=== PATIENT | male | born 1965 | race Caucasian/White ===

== ENCOUNTER 2021-11-09 14:40 | Observation (INO) ==
--- NOTE | 2021-11-09 15:15 | Emergency Department Note ---
Impression & Plan Retrosternal chest pain ED Provider Note INFORMANT: Patient ED PROVIDER(S): Brandon Leonardo MD CHIEF COMPLAINT: Chest pain PLAN: Disposition: Admitted Condition: Good Outpatient prescription management: none Referral: None MEDICAL DECISION MAKING: Patient presented because of intermittent retrosternal chest pain. He has a cardiac history. Last intervention that was attempted was in 2013. The patient had no obvious ischemia via prehospital ECG. ECG here does show poor R wave pr ogression. The patient did have improvement with nitroglycerin prehospital. Chest x-ray was unremarkable. Blood work performed. Patient's D-dimer was elevated. CT PE study did not reveal any evidence of acute pathology. CBC, chemistry panel and troponin were negative. Given the patient's history and symptoms further management in the hospital be necessary. Consultation was placed with hospital service. Patient was evaluated in the ER admitted for further management. Triage Nursing notes reviewed and agree them. Vital Signs: reviewed and remarkable for no significant abnormalities Differential diagnosis: Cardiac ischemia, aortic dissection, pulmonary embolism, pneumothorax, pneumonia, pericarditis, myocarditis, esophageal rupture, GERD, cholecystitis, pancreatitis, musculoskeletal, as well as other pathologies. Diagnostics interpreted by me: ECG: Twelve-lead ECG reveals a normal sinus rhythm at 64 bpm. There is poor R wave progression anteriorly. No ST elevation or depression. No PACs or PVCs. Normal axis. Cardiac Monitoring: Cardiac monitoring ordered by me: The patient was placed on continuous cardiac monitoring and observed. It revealed a normal sinus rhythm at 66 beats per minute without ectopy or evidence of dysrhythmia. Imaging studies: Chest x-ray. Findings: A chest x-ray was performed and revealed no pneumothorax, effusion, infiltrate, pulmonary edema, free air under the diaphragm, or wide mediastinum. Impression: No acute disease. HPI: The patient is a 56year old male who presents to the Emergency Room with complaints of chest pain. This started last night around 9 PM and is described as intermittent. The patient also notes the following associated symptoms, feeling slightly mildly short of breath. The patient has been given aspirin and nitroglycerin for relieving factors. Current pain is rated as 4/10. Patient has history of CO. Notes coronary disease. Was not amenable to intervention in 2013. Pt denies LOC, headache, fevers, chills, visual changes, neck pain, nausea, vomiting, abdominal pain, back pain, melena, hematochezia, urinary sy mptoms, numbness, weakness, lymphadenopathy, rash, or other complaints. ROS: See above HPI for pertinent positives & negatives. A total of 10 systems reviewed and were otherwise negative. PAST MEDICAL HISTORY:See Below , CAD PAST SURGICAL HISTORY:See Below, FAMILY HISTORY:See Below SOCIAL HISTORY:See Below, incarcerated HOME MEDICATIONS:See Below ALLERGIES:See Below VITALS:See Below PHYSICAL EXAMINATION: GENERAL: Awake, alert, well-appearing, in no distress HENT: Normocephalic, atraumatic. Oropharynx unremarkable. EYES: Mildly pale conjunctiva. Sclera non-icteric. NECK: Inspection normal. Non-tender. Supple. No nuchal rigidity. FROM. No mass es. RESPIRATORY: Clear to auscultation. No wheezes. No rales. Normal respiratory effort. CARDIAC: Normal rate. Normal rhythm. No murmurs. No rubs. Extremities warm and well perfused. Pulses equal. No JVD. GI: Soft, non-distended. No tenderness to palpation. No rebound or guarding. No masses. RECTAL: Deferred. MUSCULOSKELETAL: Atraumatic. Chest examination reveals minimal costal margin tenderness. The back is symmetrical on inspection without obvious abnormality. There is no CVA tenderness to palpation. No joint edema. LOWER EXTREMITIES: Calves are equal size bilaterally and non-tender. No edema. No discoloration. NEURO: Normal sensorium. No sensory or motor deficits noted. SKIN: No rash or jaundice noted. 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 bypass, hx of 90% occlusion Social History Smoking Status: Former smoker Second Hand Exposure: No; Do You Dip or Chew Tobacco: No; Tobacco Cessation Education Requested by Patient: No Hx Alcohol Use: No Hx Substance Use: Yes Last Used Substance Other:: 2000 Preferred Language: Amharic Communication Ability: Effective [employer] Required: No Beliefs That Will Affect Care: None Current Living Situation: Other Current Living Situation Comment: shelter Other Information That Helps Us Care for You: No Feels Safe at Home: Yes Safety Concerns: Feels Safe At This Time Assistive Devices: Oxygen - at Night Assistive Devices Comment: 3L o2 at night while at home, not using while in shelter Allergies Allergies Allergy/AdvReac Type Severity Reaction Status Date / Time onion Allergy Unknown Verified 11/09/21 15:16 Home Meds Home Medications Medication Instructions Recorded Confirmed albuterol sulfate 90 mcg/actuation 2 puff inhalation QID PRN 11/09/21 11/09/21 aerosol inhaler Shortness Of Breath Or Wheezing aspirin 81 mg tablet,delayed 81 mg PO DAILY 11/09/21 11/09/21 release atorvastatin 40 mg tablet 40 mg PO PM 11/09/21 11/09/21 hydroxyzine pamoate 50 mg capsule 50 mg PO BID 11/09/21 11/09/21 metoprolol tartrate 25 mg tablet 12.5 mg PO BID 11/09/21 11/09/21 mirtazapine 30 mg tablet 30 mg PO HS 11/09/21 11/09/21 paroxetine HCl 20 mg tablet (Paxil) 40 mg PO DAILY 11/09/21 11/09/21 Results & Data (ED) Vital Signs Vital Signs - 24 hr 11/09/21 14:33 11/09/21 14:33 11/09/21 15:00 Temperature 37.2 C Temperature Source Oral Pulse Rate 66 Respiratory Rate 21 Respiratory Effort / Characteristics Non-Labored Respiratory Depth Normal Blood Pressure 120/79 Blood Pressure Mean 92 Pulse Oximetry 94 94 94 Oxygen Delivery Method Room Air Room Air Room Air Sepsis Recent Fever Within 48 Hours No Sepsis New/Unexplained Change in Mental Status N/A Sepsis Action Taken by Nursing No Action Required 11/09/21 15:11 Temperature Temperature Source Pulse Rate Respiratory Rate Respiratory Effort / Characteristics Respiratory Depth Blood Pressure Blood Pressure Mean Pulse Oximetry 98 Oxygen Delivery Method Room Air Sepsis Recent Fever Within 48 Hours Sepsis New/Unexplained Change in Mental Status Sepsis Action Taken by Nursing Laboratory Data Result diagrams: 11/10/21 03:45 11/10/21 03:45 Lab Results 11/09/21 11/09/21 11/09/21 Range/Units 15:10 15:10 15:10 WBC 4.48 L (4.8-10.8) K/ul RBC 5.03 (4.63-6.08) M/uL Hgb 14.6 (14.0-18.0) g/dl Hct 43.4 (40.1-51.0) % MCV 86.3 (80.0-100.0) fL MCH 29.0 (25.0-34.0) pg MCHC 33.6 (32.0-36.0) g/dL RDW Std Deviation 40.1 (36.4-46.3) fL RDW Coeff of Emmanuel 13.1 (11.5-14.5) % Plt Count 250 (130-400) K/uL MPV 9.8 (9.4-12.4) fL Immature Gran % (Auto) 0.4 % Neut % (Auto) 55.0 % Lymph % (Auto) 29.2 % Gallia % (Auto) 13.2 % Eos % (Auto) 1.3 % Baso % (Auto) 0.9 % Neut # (Auto) 2.46 (1.4-6.5) K/uL Lymph # (Auto) 1.31 (1.2-3.4) K/uL Gallia # (Auto) 0.59 (0.24-0.82) K/uL Eos # (Auto) 0.06 (0-0.50) K/uL Baso # (Auto) 0.04 (0-0.2) K/uL Immature Gran # (Auto) 0.02 (0.00-0.02) K/uL D-Dimer 1410 H* (0-500) ug/L FEU Sodium 135 L (136-145) mmol/L Potassium 4.6 (3.5-5.1) mmol/L Chloride 106 (98-107) mmol/L Carbon Dioxide 20 L (21-32) mmol/L Anion Gap 9 (3-11) BUN 15 (6-23) mg/dl Creatinine 1.31 (0.6-1.4) mg/dl Est Cr Clr Drug Dosing 83.0 ml/min Est GFR ( Amer) 70.5 ml/min Est GFR (Non-Af Amer) 60.9 ml/min BUN/Creatinine Ratio 11.5 (10-20) Glucose 102 H (70-99(Fasting)) mg/dl Calcium 9.1 (8.5-10.1) mg/dl Total Bilirubin 0.6 (0.2-1.0) mg/dl AST 30 (13-39) U/L ALT 27 (7-52) U/L Alkaline Phosphatase 49 (34-104) U/L Troponin I High Sens 3.7 (0-20) pg/ml Total Protein 7.1 (6.0-8.3) gm/dl Albumin 4.2 (3.4-5.0) gm/dl Globulin 2.9 (2.5-4.0) gm/dl Albumin/Globulin Ratio 1.4 (0.9-2) Lipase 27 (11-82) U/L SARS-CoV-2, RNA, NAAT (NEGATIVE) 11/09/21 Range/Units 15:12 WBC (4.8-10.8) K/ul RBC (4.63-6.08) M/uL Hgb (14.0-18.0) g/dl Hct (40.1-51.0) % MCV (80.0-100.0) fL MCH (25.0-34.0) pg MCHC (32.0-36.0) g/dL RDW Std Deviation (36.4-46.3) fL RDW Coeff of Emmanuel (11.5-14.5) % Plt Count (130-400) K/uL MPV (9.4-12.4) fL Immature Gran % (Auto) % Neut % (Auto) % Lymph % (Auto) % Gallia % (Auto) % Eos % (Auto) % Baso % (Auto) % Neut # (Auto) (1.4-6.5) K/uL Lymph # (Auto) (1.2-3.4) K/uL Gallia # (Auto) (0.24-0.82) K/uL Eos # (Auto) (0-0.50) K/uL Baso # (Auto) (0-0.2) K/uL Immature Gran # (Auto) (0.00-0.02) K/uL D-Dimer (0-500) ug/L FEU Sodium (136-145) mmol/L Potassium (3.5-5.1) mmol/L Chloride (98-107) mmol/L Carbon Dioxide (21-32) mmol/L Anion Gap (3-11) BUN (6-23) mg/dl Creatinine (0.6-1.4) mg/dl Est Cr Clr Drug Dosing ml/min Est GFR ( Amer) ml/min Est GFR (Non-Af Amer) ml/min BUN/Creatinine Ratio (10-20) Glucose (70-99(Fasting)) mg/dl Calcium (8.5-10.1) mg/dl Total Bilirubin (0.2-1.0) mg/dl AST (13-39) U/L ALT (7-52) U/L Alkaline Phosphatase (34-104) U/L Troponin I High Sens (0-20) pg/ml Total Protein (6.0-8.3) gm/dl Albumin (3.4-5.0) gm/dl Globulin (2.5-4.0) gm/dl Albumin/Globulin Ratio (0.9-2) Lipase (11-82) U/L SARS-CoV-2, RNA, NAAT NEGATIVE (NEGATIVE) Administered Medications Aspirin (Aspirin 81 Mg Ectab) 81 mg PO DAILY CANDI Stop: 12/10/21 08:59 Last Admin: 11/10/21 08:04 Dose: 81 mg Documented By: LEONA Atorvastatin Calcium (Atorvastatin 40 Mg Tab) 40 mg PO PM CANDI Stop: 12/09/21 20:59 Last Admin: 11/09/21 21:54 Dose: 40 mg Documented By: ZAHIRA Enoxaparin Sodium (Enoxaparin Inj 40 Mg/0.4 Ml Syr) 40 mg SQ Q12H CANDI Stop: 12/09/21 20:59 Last Admin: 11/10/21 08:04 Dose: 40 mg Documented By: Admin: 11/09/21 21:54 Dose: 40 mg Documented By: ZAHIAR Hydroxyzine HCl (Hydroxyzine Hcl 25 Mg Tab) 50 mg PO BID CANDI Stop: 12/09/21 20:59 Last Admin: 11/10/21 08:04 Dose: 50 mg Documented By: Admin: 11/09/21 21:54 Dose: 50 mg Documented By: ZAHIRA Metoprolol Tartrate (Metoprolol Tartrate 25 Mg Tab) 12.5 mg PO BID CANDI Stop: 12/09/21 20:59 Last Admin: 11/10/21 08:05 Dose: Not Given Documented By: Admin: 11/09/21 21:55 Dose: Not Given Documented By: ZAHIRA Mirtazapine (Mirtazapine Tab 15 Mg Tab) 30 mg PO HS CANDI Stop: 12/09/21 20:59 Last Admin: 11/09/21 21:54 Dose: 30 mg Documented By: ZAHIRA Paroxetine HCl (Paroxetine Hcl 20 Mg Tab) 40 mg PO DAILY CANDI Stop: 12/10/21 08:59 Last Admin: 11/10/21 08:05 Dose: 40 mg Documented By: LEONA Discontinued Medications Atropine Sulfate (Atropine Sulfate 0.1 Mg/Ml 10ml Syr) Confirm Administered Dose 2 mg IV .STK-MED ONE Stop: 11/10/21 11:14 Last Admin: 11/10/21 11:51 Dose: 0.75 mg Documented By: KELLEY Dobutamine HCl (Dobutamine Hcl 12.5 Mg/Ml 20 Ml Vial) Confirm Administered Dose 250 mg IV .STK-MED ONE Stop: 11/10/21 11:14 Last Admin: 11/10/21 11:55 Dose: 1 dose Documented By: KELLEY Ioversol (Optiray 300 500ml) 112 ml IV ONCE ONE Stop: 11/09/21 16:16 Last Admin: 11/09/21 16:16 Dose: 112 ml Documented By: DONNA Metoprolol Tartrate (Metoprolol Tartrate 1 Mg/Ml Vial) Confirm Administered Dose 10 mg IV .STK-MED ONE Stop: 11/10/21 11:14 Last Admin: 11/10/21 11:55 Dose: 10 mg Documented By: KELLEY Imaging Data Radiologist's Impression: Chest X-Ray 11/09/21 15:04 XR chest 1V portable CLINICAL HISTORY: Chest Pain TECHNIQUE: Single frontal radiograph of the chest was obtained. Comparison: None available at the time of this dictation. FINDINGS: No lines and tubes are seen. The cardiomediastinal silhouette is normal. The lungs are clear. No evidence of pleural effusion or pneumothorax. IMPRESSION: No acute chest disease. ACT 112: Negative or not required by law. Electronically signed by: Niraj Ortega M.D. 11/09/2021 3:21 PM Discharge Plan Visit Data Chief Complaint: Chest Pain Stated Complaint: CHEST PAIN ED Provider: Brandon Leonardo Discharge Problem: Retrosternal chest pain Patient Disposition: Admitted As Inpatient Discharge Instructions Interventions: ED Discharge Assessment Last Done: 11/09/21 20:34
--- NOTE | 2021-11-09 15:23 | XRay Report ---
XR chest 1V portable CLINICAL HISTORY: Chest Pain TECHNIQUE: Single frontal radiograph of the chest was obtained. Comparison: None available at the time of this dictation. FINDINGS: No lines and tubes are seen. The cardiomediastinal silhouette is normal. The lungs are clear. No evid ence of pleural effusion or pneumothorax. IMPRESSION: No acute chest disease. ACT 112: Negative or not required by law. Electronically signed by: Niraj Ortega M.D. 11/09/2021 3:21 PM
[2021-11-09 15:27] LABS: Basophils # (auto) 0.04 K/uL (0-0.2); Basophils % (auto) 0.9 %; Eosinophils # (auto) 0.06 K/uL (0-0.50); Eosinophils % (auto) 1.3 %; Hematocrit (blood only) 43.4 % (40.1-51.0); Hemoglobin 14.6 g/dl (14.0-18.0); Immature Granulocytes # (auto) 0.02 K/uL (0.00-0.02); Immature Granulocytes % (auto) 0.4 %; Lymphocytes # (auto) 1.31 K/uL (1.2-3.4); Lymphocytes % (auto) 29.2 %; Mean Corpuscular Hgb Conc 33.6 g/dL (32.0-36.0); Mean Corpuscular Volume 86.3 fL (80.0-100.0); Mean Platelet Volume 9.8 fL (9.4-12.4); Monocytes # (auto) 0.59 K/uL (0.24-0.82); Monocytes % (auto) 13.2 %; Neutrophils # (auto) 2.46 K/uL (1.4-6.5); Platelet Count 250 K/uL (130-400); RDW Coefficient of Variation 13.1 % (11.5-14.5); RDW Standard Deviation 40.1 fL (36.4-46.3); Red Blood Count 5.03 M/uL (4.63-6.08); White Blood Count 4.48 K/ul (4.8-10.8)
[2021-11-09 15:50] LABS: Albumin Globulin Ratio 1.4 (0.9-2); Albumin Level 4.2 gm/dl (3.4-5.0); BUN Creatinine Ratio 11.5 (10-20); Bilirubin,Total 0.6 mg/dl (0.2-1.0); Calcium 9.1 mg/dl (8.5-10.1); Est GFR (African American) 70.5 ml/min; Est GFR (Non-African American) 60.9 ml/min; Globulin 2.9 gm/dl (2.5-4.0); Potassium 4.6 mmol/L (3.5-5.1); Total Protein 7.1 gm/dl (6.0-8.3)
[2021-11-09 15:52] LABS: D Dimer 1410 ug/L FEU (0-500)
[2021-11-09 15:55] LABS: Troponin I High Sensitivity 3.7 pg/ml (0-20)
[2021-11-09] MEDS ORDERED: OPTIRAY 300 500mL IV ONE (16:15)
--- NOTE | 2021-11-09 16:41 | CT Scan Report ---
CT angio chest PE protocol CLINICAL HISTORY: Chest pain, +dimer, Cr 1.3 TECHNIQUE: Multidetector row helical CT of the chest was performed with angiographic protocol. Gerber l and sagittal reformations were obtained. Coronal and sagittal MIPS were obtained from the axial gabe a set and were submitted for review. Automated dose lowering techniques and/or adjustment according to patient size were utilized for this exam. CT DOSE: 905.44 mGy.cm Comparison: Comparison is made to CT chest 11/09/2021 FINDINGS: Lungs and pleura: Mucous is noted in the trachea. There is a 6 mm nodule at the left lung base (serie s 4 image 72). Heart and pericardium: Heart size is normal. No pericardial effusion. Vessels: Evaluation for pulmonary embolism is limited due to suboptimal contrast timing. No evidence of central, lobar, or segmental embolus. Mediastinum and barbara: Unremarkable. Chest wall and lower neck: Unremarkable. Abdomen: A hiatal hernia is seen. Subcentimeter paraesophageal lymph nodes are seen. Bones: Degenerative changes in the thoracic spine. IMPRESSION: 1. No evidence of pulmonary embolism. 2. 6 mm pulmonary nodule in the left lung base. According to Fleischner criteria, no follow-up is re quired in low risk patients, in high-risk patients, a 12 month follow-up CT can be optionally perform ed. ACT 112: Negative or not required by law. Electronically signed by: Niraj Ortega M.D. 11/09/2021 4:38 PM
--- NOTE | 2021-11-09 17:16 | History & Physical Report ---
Date of Service November 09, 2021 Assessment & Plan (1) Chest pain: (2) CAD (coronary artery disease): (3) HTN (hypertension): (4) HLD (hyperlipidemia): (5) COPD (chronic obstructive pulmonary disease): (6) Nocturnal hypoxia: Plan This is a 56-year-old male who has a significant PMH of CAD, HLD, COPD, GERD, Anxiety, depression, hx of alcohol use who presents to ED secondary to chest pain since last evening around 9 PM. Pt presents with off and on chest pain in setting of hx of CAD. Sx occur at rest, did improve with nitro. Initial ecg and trop negative. Atypical Chest Pain hx of CAD s/p CABG x 1 - reported by patient admit to pcu obtain echocardiogram obtain [facility] where pt states he had a 1V bypass done cycle trops consult cardiology repeat ecg in a.m. obtain a1c, lipid panel in a.m. prn ntg received full dose ASA enroute to hosp continue asa, statin, metoprolol HTN bp stable continue metoprolol HLD continue statin hx of tobacco abuse COPD nocturnal hypoxia continue O2 at HS prn albuterol no acute exac DVT ppx: SQ Lovenox Dispo: PCU, return to [facility] when medically stable FULL CODE Pt was seen and examined in collaboration with Dr. Borrero, please see addendum History of Present Illness Chief Complaint: Chest pain since 9pm last evening. Primary Care Provider: [facility] This is a 56-year-old male who has a significant PMH of CAD, HLD, COPD, GERD, Anxiety, depression, hx of alcohol use who presents to ED secondary to chest pain since last evening around 9 PM. Of significance patient does have prior history of AK and coronary artery disease. He did undergo cardiac catheterization in 2013 which was not amenable to intervention. He states he had to undergo a 1V bypass at [facility] in [place], [place]. He is currently incarcerated. CP started at 9pm last night. He was sleeping. It was substernal, nonradiating, felt like a, "pressure," nothing made better or worse. He had similar sx in past with prior AK. He rated pain as 8/10 at worst and 4/10 at best. Today he had similar sx and opted to seek ED treatment. He did get a ntg as well as full strength asa which helped pain. He also states he got diaphoretic and chills as well a dizziness. He denies any recent illness, f/c/s, URI sx, cough, lightheaded, presyncope, sob at rest, hemoptysis, n/v/d, abd pain, change in bowel or urinary habits. He admits to being complaint with medications. He denies any recent trauma to chest or falls. +FH of CAD. His mother had 6 stents to heart in her 60s. Also both sets of grandparents had heart disease. Father in early 60s due to diabetes and heart disease. In ED he remained hemodynamically stable. Initial troponin was negative. EKG was with out ischemic change. He did have elevated D dimer and therefore CTA was ordered. This was negative for PE but did show 6mm pulmonary nodule at Left lung base. Recommend follow up in 12 months. No meds were administered in ED as he received full strength asa and ntg Allergies Allergy/AdvReac Type Severity Reaction Status Date / Time onion Allergy Unknown Verified 11/09/21 15:16 Home Medications Medication Instructions Recorded Confirmed Type albuterol sulfate 90 mcg/actuation 2 puff inhalation QID PRN 11/09/21 11/09/21 History aerosol inhaler Shortness Of Breath Or Wheezing aspirin 81 mg tablet,delayed 81 mg PO DAILY 11/09/21 11/09/21 History release atorvastatin 40 mg tablet 40 mg PO PM 11/09/21 11/09/21 History hydroxyzine pamoate 50 mg capsule 50 mg PO BID 11/09/21 11/09/21 History metoprolol tartrate 25 mg tablet 12.5 mg PO BID 11/09/21 11/09/21 History mirtazapine 30 mg tablet 30 mg PO HS 11/09/21 11/09/21 History paroxetine HCl 20 mg tablet (Paxil) 40 mg PO DAILY 11/09/21 11/09/21 History Past Med/Surg History Medical History CAD (coronary artery disease) COPD (chronic obstructive pulmonary disease) HLD (hyperlipidemia) HTN (hypertension) Surgical History Hx of heart bypass surgery pt states 1 V bypass, hx of 90% occlusion Social History Smoking Status: Former smoker Hx Alcohol Use: Yes Alcohol type Comment: rare Hx Substance Use: No Preferred Language: Ukrainian Current Living Situation Comment: Incarcerated Feels Safe at Home: Yes Review of Systems Review of Systems: All systems reviewed & are unremarkable except as noted in HPI & below Physical Exam Physical Exam: Please refer to Dr. Borrero addendum for physical exam findings. Results & Data Results & Data ([facility]) Vital Signs (Past 12 Hours) Vital Signs Temp Pulse Resp BP Pulse Ox O2 Del Method 11/09/21 16:00 62 21 125/82 94 Room Air 11/09/21 15:30 64 22 117/80 93 Room Air 11/09/21 15:10 67 21 115/88 93 Room Air 11/09/21 15:11 98 Room Air 11/09/21 15:00 94 Room Air 11/09/21 14:33 94 Room Air 11/09/21 14:33 37.2 C 66 21 120/79 94 Room Air Diagnostic Findings Chest X-Ray 11/09/21 15:04 XR chest 1V portable CLINICAL HISTORY: Chest Pain TECHNIQUE: Single frontal radiograph of the chest was obtained. Comparison: None available at the time of this dictation. FINDINGS: No lines and tubes are seen. The cardiomediastinal silhouette is normal. The lungs are clear. No evidence of pleural effusion or pneumothorax. IMPRESSION: No acute chest disease. ACT 112: Negative or not required by law. Electronically signed by: Niraj Ortega M.D. 11/09/2021 3:21 PM Chest CTA 11/09/21 15:54 CT angio chest PE protocol CLINICAL HISTORY: Chest pain, +dimer, Cr 1.3 TECHNIQUE: Multidetector row helical CT of the chest was performed with angiographic protocol. Coronal and sagittal reformations were obtained. Coronal and sagittal MIPS were obtained from the axial data set and were submitted for review. Automated dose lowering techniques and/or adjustment according to patient size were utilized for this exam. CT DOSE: 905.44 mGy.cm Comparison: Comparison is made to CT chest 11/09/2021 FINDINGS: Lungs and pleura: Mucous is noted in the trachea. There is a 6 mm nodule at the left lung base (series 4 image 72). Heart and pericardium: Heart size is normal. No pericardial effusion. Vessels: Evaluation for pulmonary embolism is limited due to suboptimal contrast timing. No evidence of central, lobar, or segmental embolus. Mediastinum and barbara: Unremarkable. Chest wall and lower neck: Unremarkable. Abdomen: A hiatal hernia is seen. Subcentimeter paraesophageal lymph nodes are seen. Bones: Degenerative changes in the thoracic spine. IMPRESSION: 1. No evidence of pulmonary embolism. 2. 6 mm pulmonary nodule in the left lung base. According to Fleischner criteria, no follow-up is required in low risk patients, in high-risk patients, a 12 month follow-up CT can be optionally performed. ACT 112: Negative or not required by law. Electronically signed by: Niraj Ortega M.D. 11/09/2021 4:38 PM Medications Administered Medication List Discontinued Medications Ioversol (Optiray 300 500ml) 112 ml IV ONCE ONE Stop: 11/09/21 16:16 Last Admin: 11/09/21 16:16 Dose: 112 ml Documented By: DONNA ECG Rate (beats per minute): 64 Rhythm: normal sinus Findings: + RBBB Additional Comments: incomplete RBBB COVID-19 Results Results COVID-19 Adm Lab Results: RBC 5.03 M/uL (4.63-6.08) 11/09/21 WBC 4.48 K/ul (4.8-10.8) L 11/09/21 Hgb 14.6 g/dl (14.0-18.0) 11/09/21 Hct 43.4 % (40.1-51.0) 11/09/21 Plt Count 250 K/uL (130-400) 11/09/21 Neutrophils (%) (Auto) 55.0 % 11/09/21 Lymphocytes (%) (Auto) 29.2 % 11/09/21 Monocytes # (Auto) 0.59 K/uL (0.24-0.82) 11/09/21 Eosinophils # (Auto) 0.06 K/uL (0-0.50) 11/09/21 Immature Granulocyte % (Auto) 0.4 % 11/09/21 Neutrophils # (Auto) 2.46 K/uL (1.4-6.5) 11/09/21 Lymphocytes # (Auto) 1.31 K/uL (1.2-3.4) 11/09/21 Monocytes # (Auto) 0.59 K/uL (0.24-0.82) 11/09/21 Eosinophils # (Auto) 0.06 K/uL (0-0.50) 11/09/21 Basophils # (Auto) 0.04 K/uL (0-0.2) 11/09/21 Immature Granulocyte # (Auto) 0.02 K/uL (0.00-0.02) 2 Na 135 mmol/L (136-145) L 11/09/21 K 4.6 mmol/L (3.5-5.1) 11/09/21 Cl 106 mmol/L (98-107) 11/09/21 CO2 20 mmol/L (21-32) L 11/09/21 Anion Gap 9 (3-11) 11/09/21 BUN 15 mg/dl (6-23) 11/09/21 Creatinine 1.31 mg/dl (0.6-1.4) 11/09/21 BUN/Creatinine Ratio 11.5 (10-20) 11/09/21 Glucose Level 102 mg/dl (70-99(Fasting)) H 11/09/21 Ca 9.1 mg/dl (8.5-10.1) 11/09/21 Total Bilirubin 0.6 mg/dl (0.2-1.0) 11/09/21 AST/SGOT 30 U/L (13-39) 11/09/21 ALT/SGPT 27 U/L (7-52) 11/09/21 Alkaline Phosphatase 49 U/L (34-104) 11/09/21 Total Protein 7.1 gm/dl (6.0-8.3) 11/09/21 Albumin 4.2 gm/dl (3.4-5.0) 11/09/21 Globulin 2.9 gm/dl (2.5-4.0) 11/09/21 Albumin/Globulin Ratio 1.4 (0.9-2) 11/09/21 D-Dimer 1410 ug/L FEU (0-500) H* 11/09/21 SARS-CoV-2, RNA, NAAT NEGATIVE (NEGATIVE) 11/09/21 Chest X-Ray 08/18/22 Code Status & VTE Plan Code Status FULL CODE VTE Prophylaxis Plan VTE Prophylaxis will be ordered: Yes Supervising Physician Co-Signing Physician Notes Patient is a 56-year-old male with history of coronary artery disease, COPD, chronic respiratory failure with hypoxia on 3 L at bedtime, anxiety and depression and other medical problems presents with history of left-sided chest pain which started at around 9 PM yesterday. Patient states having cardiac catheterization many years ago and was thought to be not amenable for any intervention. He admits to having bypass in the past. He describes chest pain as pressure-like sensation, substernal, nonradiating, which woke him up from sleep yesterday. He reports associated diaphoresis and chills, dizziness. Patient states that his chest pain was similar to prior AK. Aspirin and nitroglycerin slightly relieve the pain. Please review HPI for complete details of presentation. Blood work showed WBC 4.48, hemoglobin 14.6, hematocrit 43.4, platelet count 250, D-dimer elevated 1410, odium 135, potassium 4.6, chloride 106, bicarbonate 20, BUN 15, creatinine 1.31, calcium 9.1, glucose 102, total bilirubin 1.6, AST 30, ALT 27, alkaline phosphatase 49, high-sensitivity troponin 3.7, lipase 27. CTA showed no evidence of pulmonary embolism. 6 mm pulmonary nodule in the left lung base noted. EKG showed normal sinus rhythm, incomplete right bundle branch block, QTC 408. Physical Exam: Vitals signs as noted above General Appearance:Morbidly Obese, no apparent distress Head: normocephalic, Atraumatic Eyes: normal inspection, EOMI Neck: supple, Trachea midline Respiratory/Chest: Normal breath sounds, CTA, No accessory muscle use Cardiovascular: Distant heart sounds, no audible murmur, no pedal edema. Abdomen/GI:Soft, Non tender, Bowel sounds present, protuberant. Extremities/Musculoskeletal:normal inspection, no edema Neurologic/Psych:AAOX3, grossly no focal neurological deficits Skin: normal color, warm Chest pain rule out ACS. Elevated D dimer H/O CABG COPD Chronic respiratory failure with Hypoxia Oxygen dependency-3 L at bedtime Initial troponin negative Check resting echo Trend cardiac enzymes N.p.o. after midnight Repeat EKG in the morning Nitroglycerin as needed Consider starting IV heparin if patient develops worsening chest pain or troponins elevated Continue aspirin, statin, metoprolol CTA negative for PE I personally reviewed the record. Patient is interviewed and examined at bedside. Patient's care is coordinated with Viviana Gauthier PA-C. Please refer to the documentation above for details of patient's presentation and for discussion of other issues.
--- NOTE | 2021-11-09 17:24 | Electrocardiogram Report ---
Test Reason : Blood Pressure : / mmHG Vent. Rate : 064 BPM Atrial Rate : 064 BPM P-R Int : 184 ms QRS Dur : 080 ms QT Int : 396 ms P-R-T Axes : 017 066 031 degrees QTc Int : 408 ms Normal sinus rhythm Incomplete right bundle branch block No previous ECGs available Confirmed by Marlo Leon ([id number]) on 11/09/2021 5:24:08 PM Referred By: Confirmed By:Jason Leon
[2021-11-09] MEDS ORDERED: NITROGLYCERIN SL 0.4 MG/TAB TAB SL PRN (20:56)
[2021-11-09] MEDS ORDERED: POLYETHYLENE (MIRALAX) 17 GM PACK PO PRN (20:56)
[2021-11-09] MEDS ORDERED: ALBUTEROL HFA 8 GM INHALER INH PRN (20:56)
[2021-11-09] MEDS ORDERED: ONDANSETRON INJ 2 MG/ML 2 ML VIAL IV PRN (20:56)
[2021-11-09] MEDS ORDERED: MAGNESIUM HYDROXIDE SUSP 30 ML UDC PO PRN (20:56)
[2021-11-09] MEDS ORDERED: ALUMINUM/MAGNESIUM SUSP 30 ML UDC PO PRN (20:56)
[2021-11-09] MEDS ORDERED: ACETAMINOPHEN 325 MG TAB PO PRN (20:56)
[2021-11-09] MEDS ORDERED: MIRTAZAPINE TAB 15 MG TAB PO SCH (21:00)
[2021-11-09] MEDS ORDERED: ATORVASTATIN 40 MG TAB PO SCH (21:00)
[2021-11-09] MEDS: ENOXAPARIN INJ 40 MG/0.4 ML SYR SQ SCH (21:54)
[2021-11-09] MEDS: hydrOXYzine HCl 25 MG TAB PO SCH (21:54)
[2021-11-09] MEDS: METOPROLOL TARTRATE 25 MG TAB PO SCH (21:55)
[2021-11-10 03:58] LABS: Basophils # (auto) 0.04 K/uL (0-0.2); Basophils % (auto) 0.7 %; Eosinophils # (auto) 0.15 K/uL (0-0.50); Eosinophils % (auto) 2.6 %; Hemoglobin 14.5 g/dl (14.0-18.0); Immature Granulocytes # (auto) 0.03 K/uL (0.00-0.02); Immature Granulocytes % (auto) 0.5 %; Lymphocytes # (auto) 1.74 K/uL (1.2-3.4); Lymphocytes % (auto) 30.3 %; Mean Corpuscular Hemoglobin 29.1 pg (25.0-34.0); Mean Corpuscular Hgb Conc 33.7 g/dL (32.0-36.0); Mean Corpuscular Volume 86.2 fL (80.0-100.0); Mean Platelet Volume 9.7 fL (9.4-12.4); Monocytes # (auto) 0.83 K/uL (0.24-0.82); Monocytes % (auto) 14.5 %; Neutrophils # (auto) 2.95 K/uL (1.4-6.5); Neutrophils % (auto) 51.4 %; Platelet Count 209 K/uL (130-400); RDW Coefficient of Variation 13.2 % (11.5-14.5); RDW Standard Deviation 40.9 fL (36.4-46.3); Red Blood Count 4.99 M/uL (4.63-6.08); White Blood Count 5.74 K/ul (4.8-10.8)
[2021-11-10 04:37] LABS: Albumin Globulin Ratio 1.5 (0.9-2); Albumin Level 4.1 gm/dl (3.4-5.0); Bilirubin,Total 0.7 mg/dl (0.2-1.0); Calcium 9.2 mg/dl (8.5-10.1); Chol HDL Ratio 8.6 (0-5); Creatinine Clr Calc Pharmacy 67.3 ml/min; Globulin 2.7 gm/dl (2.5-4.0); Magnesium 2.2 mg/dl (1.7-2.4); Potassium 4.3 mmol/L (3.5-5.1); Total Protein 6.8 gm/dl (6.0-8.3)
[2021-11-10 07:01] LABS: Estimated Average Glucose 111 mg/dl; Hemoglobin A1C 5.5 % (4.5-5.6)
[2021-11-10] MEDS: ENOXAPARIN INJ 40 MG/0.4 ML SYR SQ SCH (08:04)
[2021-11-10] MEDS: hydrOXYzine HCl 25 MG TAB PO SCH (08:04)
[2021-11-10] MEDS: METOPROLOL TARTRATE 25 MG TAB PO SCH (08:05)
--- NOTE | 2021-11-10 08:32 | Hospitalist Progress Note ---
Date of Service November 10, 2021 Assessment & Plan (1) Chest pain: (2) CAD (coronary artery disease): (3) HTN (hypertension): (4) HLD (hyperlipidemia): (5) COPD (chronic obstructive pulmonary disease): (6) Nocturnal hypoxia: Plan This is a 56-year-old male who has a significant PMH of CAD, HLD, COPD, GERD, Anxiety, depression, hx of alcohol use who presents to ED secondary to chest pain Pt presents with off and on chest pain in setting of hx of CAD. Sx occur at rest, did improve with nitro. Initial ecg negative. Serial troponins negative. Atypical Chest Pain hx of CAD s/p CABG x 1 CTA chest obtained FINDINGS: Lungs and pleura: Mucous is noted in the trachea. There is a 6 mm nodule at the left lung base (series 4 image 72). Heart and pericardium: Heart size is normal. No pericardial effusion. Vessels: Evaluation for pulmonary embolism is limited due to suboptimal contrast timing. No evidence of central, lobar, or segmental embolus. Mediastinum and barbara: Unremarkable. Chest wall and lower neck: Unremarkable. Abdomen: A hiatal hernia is seen. Subcentimeter paraesophageal lymph nodes are seen. Bones: Degenerative changes in the thoracic spine. IMPRESSION: 1. No evidence of pulmonary embolism. 2. 6 mm pulmonary nodule in the left lung base. According to Fleischner criteria, no follow-up is required in low risk patients, in high-risk patients, a 12 month follow-up CT can be optionally performed. Admitted to pcu hx of 1V bypass at [facility] in 2013 Cardiology consulted Obtained echocardiogram and pt also underwent stress echo echo EF 60 to 65%. There is mild concentric LVH. LV wall motion is normal. Grade 1 diastolic dysfunction. No significant valvular pathology. Dobutamine stress echo Normal pharmacologic stress echo. No echocardiographic or ECG evidence of myocardial ischemia having achieved heart rate adequate for diagnostic purposes. Current hemoglobin a1c 5/5% Lipid panel obtained TC 257, LDL 167 Per cardiology - Patient without evidence of acute coronary syndrome. History of chronic coronary disease with coronary artery bypass grafting x1. Dobutamine stress echo negative for inducible ischemia. Stress test denotes a low risk of cardiovascular events over the next 1 year. Recommend continued medical management. No further inpatient cardiac testing at this time. Continue asa, statin, metoprolol Discussed medication compliance given elevated cholesterol Counseled on weight loss, and healthier diet HTN BP stable continue metoprolol HLD continue statin hx of tobacco abuse COPD nocturnal hypoxia continue O2 at HS prn albuterol no acute exac DVT ppx: SQ Lovenox Dispo: PCU, plan to return to [facility] FULL CODE Admission and Anticipated Discharge Date Admission Date: November 09, 2021 Subjective Patient seen in follow-up of chest pain Seen by cardiology, underwent evaluation, including stress echo Currently laying in bed, in no acute distress. Denies any significant chest pain, says it comes and goes but currently feels comfortable. No shortness of breath, no dizziness. Patient reports feeling hungry. No abdominal pain nausea vomiting. He has been ambulating. Review of Systems Review of Systems: All systems reviewed & are unremarkable except as noted in Subjective Physical Exam Physical Exam: General Appearance:Morbidly Obese M, in no acute distress Head: normocephalic, Atraumatic Eyes: normal inspection, EOMI Neck: supple Respiratory/Chest: Normal breath sounds, CTA, No accessory muscle use Cardiovascular: RRR, no audible murmur, no pedal edema. Abdomen/GI:Soft, Non tender, Bowel sounds present, obese Extremities/Musculoskeletal:normal inspection, no edema Neurologic/Psych:AAOX3, grossly no focal neurological deficits Skin: normal color, warm Results & Data Results & Data ([facility]) Vital Signs (Past 12 Hours) Vital Signs Temp Pulse Pulse Resp BP Pulse Ox Pulse Ox 11/10/21 07:59 36.5 C 57 L 20 118/77 92 11/10/21 07:42 56 L 11/10/21 03:21 36.4 C L 61 18 120/85 91 11/09/21 23:00 57 L 11/09/21 22:56 36.5 C 56 L 18 111/74 95 11/09/21 20:56 11/09/21 20:56 95 11/09/21 21:23 58 L 11/09/21 20:56 36.4 C L 59 L 18 110/60 94 11/09/21 20:31 56 L 15 102/69 94 O2 Del Method O2 Del Method 11/10/21 07:59 Room Air 11/10/21 07:42 11/10/21 03:21 Room Air 11/09/21 23:00 11/09/21 22:56 Room Air 11/09/21 20:56 Room Air 11/09/21 20:56 Room Air 11/09/21 21:23 11/09/21 20:56 Room Air 11/09/21 20:31 Room Air Laboratory Results 11/10/21 11/10/21 11/10/21 Range/Units 03:45 03:45 03:45 WBC 5.74 (4.8-10.8) K/ul RBC 4.99 (4.63-6.08) M/uL Hgb 14.5 (14.0-18.0) g/dl Hct 43.0 (40.1-51.0) % MCV 86.2 (80.0-100.0) fL MCH 29.1 (25.0-34.0) pg MCHC 33.7 (32.0-36.0) g/dL RDW Std Deviation 40.9 (36.4-46.3) fL RDW Coeff of Emmanuel 13.2 (11.5-14.5) % Plt Count 209 (130-400) K/uL MPV 9.7 (9.4-12.4) fL Immature Gran % (Auto) 0.5 % Neut % (Auto) 51.4 % Lymph % (Auto) 30.3 % [place]ham % (Auto) 14.5 % Eos % (Auto) 2.6 % Baso % (Auto) 0.7 % Neut # (Auto) 2.95 (1.4-6.5) K/uL Lymph # (Auto) 1.74 (1.2-3.4) K/uL [place]ham # (Auto) 0.83 H (0.24-0.82) K/uL Eos # (Auto) 0.15 (0-0.50) K/uL Baso # (Auto) 0.04 (0-0.2) K/uL Immature Gran # (Auto) 0.03 H (0.00-0.02) K/uL D-Dimer (0-500) ug/L FEU Sodium 136 (136-145) mmol/L Potassium 4.3 (3.5-5.1) mmol/L Chloride 102 (98-107) mmol/L Carbon Dioxide 27 (21-32) mmol/L Anion Gap 7 (3-11) BUN 17 (6-23) mg/dl Creatinine 1.54 H (0.6-1.4) mg/dl Est Cr Clr Drug Dosing 67.3 ml/min Est GFR ( Amer) 58.0 ml/min Est GFR (Non-Af Amer) 50.0 ml/min BUN/Creatinine Ratio 11.0 (10-20) Glucose 97 (70-99(Fasting)) mg/dl Estimat Average Glucose 111 mg/dl Hemoglobin A1c 5.5 (4.5-5.6) % Calcium 9.2 (8.5-10.1) mg/dl Magnesium 2.2 (1.7-2.4) mg/dl Total Bilirubin 0.7 (0.2-1.0) mg/dl AST 27 (13-39) U/L ALT 29 (7-52) U/L Alkaline Phosphatase 52 (34-104) U/L Troponin I High Sens 4.0 (0-20) pg/ml Total Protein 6.8 (6.0-8.3) gm/dl Albumin 4.1 (3.4-5.0) gm/dl Globulin 2.7 (2.5-4.0) gm/dl Albumin/Globulin Ratio 1.5 (0.9-2) Triglycerides 302 H (0-150) mg/dl Cholesterol 257 H (0-200) mg/dl LDL Cholesterol, Calc 167 mg/dl VLDL Cholesterol, Calc 60 H (0-30) mg/dl HDL Cholesterol 30 mg/dl Cholesterol/HDL Ratio 8.6 H (0-5) Lipase (11-82) U/L Nasal Screen MRSA (PCR) (Negative) SARS-CoV-2, RNA, NAAT (NEGATIVE) 11/09/21 11/09/21 11/09/21 Range/Units 22:58 21:12 19:28 WBC (4.8-10.8) K/ul RBC (4.63-6.08) M/uL Hgb (14.0-18.0) g/dl Hct (40.1-51.0) % MCV (80.0-100.0) fL MCH (25.0-34.0) pg MCHC (32.0-36.0) g/dL RDW Std Deviation (36.4-46.3) fL RDW Coeff of Emmaunel (11.5-14.5) % Plt Count (130-400) K/uL MPV (9.4-12.4) fL Immature Gran % (Auto) % Neut % (Auto) % Lymph % (Auto) % [place] % (Auto) % Eos % (Auto) % Baso % (Auto) % Neut # (Auto) (1.4-6.5) K/uL Lymph # (Auto) (1.2-3.4) K/uL [place] # (Auto) (0.24-0.82) K/uL Eos # (Auto) (0-0.50) K/uL Baso # (Auto) (0-0.2) K/uL Immature Gran # (Auto) (0.00-0.02) K/uL D-Dimer (0-500) ug/L FEU Sodium (136-145) mmol/L Potassium (3.5-5.1) mmol/L Chloride (98-107) mmol/L Carbon Dioxide (21-32) mmol/L Anion Gap (3-11) BUN (6-23) mg/dl Creatinine (0.6-1.4) mg/dl Est Cr Clr Drug Dosing ml/min Est GFR ( Amer) ml/min Est GFR (Non-Af Amer) ml/min BUN/Creatinine Ratio (10-20) Glucose (70-99(Fasting)) mg/dl Estimat Average Glucose mg/dl Hemoglobin A1c (4.5-5.6) % Calcium (8.5-10.1) mg/dl Magnesium (1.7-2.4) mg/dl Total Bilirubin (0.2-1.0) mg/dl AST (13-39) U/L ALT (7-52) U/L Alkaline Phosphatase (34-104) U/L Troponin I High Sens 3.3 3.8 (0-20) pg/ml Total Protein (6.0-8.3) gm/dl Albumin (3.4-5.0) gm/dl Globulin (2.5-4.0) gm/dl Albumin/Globulin Ratio (0.9-2) Triglycerides (0-150) mg/dl Cholesterol (0-200) mg/dl LDL Cholesterol, Calc mg/dl VLDL Cholesterol, Calc (0-30) mg/dl HDL Cholesterol mg/dl Cholesterol/HDL Ratio (0-5) Lipase (11-82) U/L Nasal Screen MRSA (PCR) Positive A (Negative) SARS-CoV-2, RNA, NAAT (NEGATIVE) 11/09/21 11/09/21 11/09/21 Range/Units 15:12 15:10 15:10 WBC (4.8-10.8) K/ul RBC (4.63-6.08) M/uL Hgb (14.0-18.0) g/dl Hct (40.1-51.0) % MCV (80.0-100.0) fL MCH (25.0-34.0) pg MCHC (32.0-36.0) g/dL RDW Std Deviation (36.4-46.3) fL RDW Coeff of Emmanuel (11.5-14.5) % Plt Count (130-400) K/uL MPV (9.4-12.4) fL Immature Gran % (Auto) % Neut % (Auto) % Lymph % (Auto) % [place] % (Auto) % Eos % (Auto) % Baso % (Auto) % Neut # (Auto) (1.4-6.5) K/uL Lymph # (Auto) (1.2-3.4) K/uL [place]ham # (Auto) (0.24-0.82) K/uL Eos # (Auto) (0-0.50) K/uL Baso # (Auto) (0-0.2) K/uL Immature Gran # (Auto) (0.00-0.02) K/uL D-Dimer 1410 H* (0-500) ug/L FEU Sodium 135 L (136-145) mmol/L Potassium 4.6 (3.5-5.1) mmol/L Chloride 106 (98-107) mmol/L Carbon Dioxide 20 L (21-32) mmol/L Anion Gap 9 (3-11) BUN 15 (6-23) mg/dl Creatinine 1.31 (0.6-1.4) mg/dl Est Cr Clr Drug Dosing 83.0 ml/min Est GFR ( Amer) 70.5 ml/min Est GFR (Non-Af Amer) 60.9 ml/min BUN/Creatinine Ratio 11.5 (10-20) Glucose 102 H (70-99(Fasting)) mg/dl Estimat Average Glucose mg/dl Hemoglobin A1c (4.5-5.6) % Calcium 9.1 (8.5-10.1) mg/dl Magnesium (1.7-2.4) mg/dl Total Bilirubin 0.6 (0.2-1.0) mg/dl AST 30 (13-39) U/L ALT 27 (7-52) U/L Alkaline Phosphatase 49 (34-104) U/L Troponin I High Sens 3.7 (0-20) pg/ml Total Protein 7.1 (6.0-8.3) gm/dl Albumin 4.2 (3.4-5.0) gm/dl Globulin 2.9 (2.5-4.0) gm/dl Albumin/Globulin Ratio 1.4 (0.9-2) Triglycerides (0-150) mg/dl Cholesterol (0-200) mg/dl LDL Cholesterol, Calc mg/dl VLDL Cholesterol, Calc (0-30) mg/dl HDL Cholesterol mg/dl Cholesterol/HDL Ratio (0-5) Lipase 27 (11-82) U/L Nasal Screen MRSA (PCR) (Negative) SARS-CoV-2, RNA, NAAT NEGATIVE (NEGATIVE) 11/09/21 Range/Units 15:10 WBC 4.48 L (4.8-10.8) K/ul RBC 5.03 (4.63-6.08) M/uL Hgb 14.6 (14.0-18.0) g/dl Hct 43.4 (40.1-51.0) % MCV 86.3 (80.0-100.0) fL MCH 29.0 (25.0-34.0) pg MCHC 33.6 (32.0-36.0) g/dL RDW Std Deviation 40.1 (36.4-46.3) fL RDW Coeff of Emmanuel 13.1 (11.5-14.5) % Plt Count 250 (130-400) K/uL MPV 9.8 (9.4-12.4) fL Immature Gran % (Auto) 0.4 % Neut % (Auto) 55.0 % Lymph % (Auto) 29.2 % [place]ham % (Auto) 13.2 % Eos % (Auto) 1.3 % Baso % (Auto) 0.9 % Neut # (Auto) 2.46 (1.4-6.5) K/uL Lymph # (Auto) 1.31 (1.2-3.4) K/uL Windham # (Auto) 0.59 (0.24-0.82) K/uL Eos # (Auto) 0.06 (0-0.50) K/uL Baso # (Auto) 0.04 (0-0.2) K/uL Immature Gran # (Auto) 0.02 (0.00-0.02) K/uL D-Dimer (0-500) ug/L FEU Sodium (136-145) mmol/L Potassium (3.5-5.1) mmol/L Chloride (98-107) mmol/L Carbon Dioxide (21-32) mmol/L Anion Gap (3-11) BUN (6-23) mg/dl Creatinine (0.6-1.4) mg/dl Est Cr Clr Drug Dosing ml/min Est GFR ( Amer) ml/min Est GFR (Non-Af Amer) ml/min BUN/Creatinine Ratio (10-20) Glucose (70-99(Fasting)) mg/dl Estimat Average Glucose mg/dl Hemoglobin A1c (4.5-5.6) % Calcium (8.5-10.1) mg/dl Magnesium (1.7-2.4) mg/dl Total Bilirubin (0.2-1.0) mg/dl AST (13-39) U/L ALT (7-52) U/L Alkaline Phosphatase (34-104) U/L Troponin I High Sens (0-20) pg/ml Total Protein (6.0-8.3) gm/dl Albumin (3.4-5.0) gm/dl Globulin (2.5-4.0) gm/dl Albumin/Globulin Ratio (0.9-2) Triglycerides (0-150) mg/dl Cholesterol (0-200) mg/dl LDL Cholesterol, Calc mg/dl VLDL Cholesterol, Calc (0-30) mg/dl HDL Cholesterol mg/dl Cholesterol/HDL Ratio (0-5) Lipase (11-82) U/L Nasal Screen MRSA (PCR) (Negative) SARS-CoV-2, RNA, NAAT (NEGATIVE) Medications Administered Current Inpatient Medications Acetaminophen (Acetaminophen 325 Mg Tab) 650 mg PO Q4H PRN PRN Reason: Pain or Fever Stop: 12/09/21 20:55 Al Hydrox/Mg Hydrox/Simethicone (Aluminum/Magnesium Susp 30 Ml Udc) 15 ml PO Q4H PRN PRN Reason: Dyspepsia Stop: 12/09/21 20:55 Albuterol (Albuterol Hfa 8 Gm Inhaler) 2 puffs INH QIDR PRN; Protocol PRN Reason: Shortness Of Breath Or Wheezing Stop: 12/09/21 20:55 Aspirin (Aspirin 81 Mg Ectab) 81 mg PO DAILY CANDI Stop: 12/10/21 08:59 Last Admin: 11/10/21 08:04 Dose: 81 mg Atorvastatin Calcium (Atorvastatin 40 Mg Tab) 40 mg PO PM CANDI Stop: 12/09/21 20:59 Last Admin: 11/09/21 21:54 Dose: 40 mg Enoxaparin Sodium (Enoxaparin Inj 40 Mg/0.4 Ml Syr) 40 mg SQ Q12H CANDI Stop: 12/09/21 20:59 Last Admin: 11/10/21 08:04 Dose: 40 mg Hydroxyzine HCl (Hydroxyzine Hcl 25 Mg Tab) 50 mg PO BID CANDI Stop: 12/09/21 20:59 Last Admin: 11/10/21 08:04 Dose: 50 mg Magnesium Hydroxide (Magnesium Hydroxide Susp 30 Ml Udc) 30 ml PO Q12H PRN PRN Reason: Constipation Stop: 12/09/21 20:55 Metoprolol Tartrate (Metoprolol Tartrate 25 Mg Tab) 12.5 mg PO BID CANDI Stop: 12/09/21 20:59 Last Admin: 11/10/21 08:05 Dose: Not Given Mirtazapine (Mirtazapine Tab 15 Mg Tab) 30 mg PO HS CANDI Stop: 12/09/21 20:59 Last Admin: 11/09/21 21:54 Dose: 30 mg Nitroglycerin (Nitroglycerin Sl 0.4 Mg/Tab Tab) 0.4 mg SL PRN PRN PRN Reason: chest pain Stop: 12/09/21 20:55 Ondansetron HCl (Ondansetron Inj 2 Mg/Ml 2 Ml Vial) 4 mg IV Q6H PRN PRN Reason: Nausea Stop: 12/09/21 20:55 Paroxetine HCl (Paroxetine Hcl 20 Mg Tab) 40 mg PO DAILY [facility] Stop: 12/10/21 08:59 Last Admin: 11/10/21 08:05 Dose: 40 mg Polyethylene Glycol (Polyethylene (Miralax) 17 Gm Pack) 17 gm PO DAILY PRN PRN Reason: Constipation Stop: 12/09/21 20:55
[2021-11-10] MEDS ORDERED: PARoxetine HCL 20 MG TAB PO SCH (09:00)
[2021-11-10] MEDS ORDERED: ASPIRIN 81 MG ECTAB PO SCH (09:00)
--- NOTE | 2021-11-10 09:29 | Cardiology Consultation ---
Date of Consultation November 10, 2021 Assessment & Plan (1) Chest pain at rest: (2) ASCVD (arteriosclerotic cardiovascular disease): (3) S/P CABG x 1: (4) HTN (hypertension): (5) HLD (hyperlipidemia): (6) COPD (chronic obstructive pulmonary disease): Plan 56-year-old male with history of premature multivessel coronary artery disease, hypertension, dyslipidemia, family history of ischemic heart disease, and history of both tobacco and remote illegal drug use. Patient admitted after a single episode of resting chest discomfort that was somewhat reminiscent of the pain associated with prior DC, now with constant waxing and waning left-sided chest discomfort that is reproducible with palpation of the chest wall. EKG without acute changes. High-sensitivity troponin I negative x4. Resting echocardiography with normal wall motion, preserved LV systolic function. Continue low-dose aspirin, low-dose beta-alejandro therapy, and as needed sublingual nitroglycerin. Recommend high intensity statin therapy, atorvastatin 80 mg/day followed by consideration for ezetimibe 10 mg/day. Consider addition of low dose long acting nitrates. Proceed with pharmacological stress testing this AM. Supervising Physician Co-Signing Physician Notes Patient seen and examined at the bedside. 56-year-old patient admitted with atypical chest discomfort. Currently pain-free. No dysrhythmias on telemetry. Chest discomfort somewhat reproducible with palpation. PE: VSS. GEn: NAD, AAOx3. Heart: Regular rhythm. Normal S1-S2. No murmur. Lungs: Clear bilateral, no rales, rhonchi, wheeze. Extremities: No edema. A/P: Agree with above PA-C history, physical exam, assessment and plan. Patient without evidence of acute coronary syndrome. History of chronic coronary disease with coronary artery bypass grafting x1. Dobutamine stress echo negative for inducible ischemia. Stress test denotes a low risk of cardiovascular events over the next 1 year. Recommend continued medical management. No further inpatient cardiac testing at this time. Thank you for allow me to participate in the care of your patient. History of Present Illness Reason for Consultation: Chest pain Requesting Physician: Abrahan Attending Physician: Brayan History of Present Illness Mr. Delroy Roy is a 56-year-old male with complex past medical history detailed below who was admitted to [facility] in November 09, 2021 for evaluation of chest discomfort. The night before last, in the middle of the night, the patient awoke with left sided chest discomfort associated with shortness of breath and drenching diaphoresis. The pain was somewhat reminiscent of the pain associated with prior DC. Thereafter, he has had left- sided chest discomfort that has waxed and waned though has been constant for at least the last day. EKG at [facility] on 11/09/2021 at 12:34:44 revealed normal sinus rhythm with prior inferior infarct, without acute ST segment changes. Patient received aspirin and sublingual nitroglycerin and was transferred to [facility] ER where he was evaluated by Dr. Leonardo. EKG in the ER revealed sinus bradycardia at 55 bpm with evidence of an old inferior infarct, w ithout acute ST segment changes. Chest x-ray showed no acute processes. An elevated D-dimer led to a CTA of the chest showing no evidence of pulmonary embolism. It did reveal a 6 mm pulmonary nodule in the left lung base. Personal review of the chest CTA reveals coronary artery atherosclerosis and what appears to be a left internal mammary artery graft to the LAD without evidence of prior medial sternotomy. High-sensitivity troponin I negative x4. Resting echocardiography on November 09, 2021 demonstrated normal LV systolic function without wall motion abnormality. Ejection fraction 60 to 65%. Mild concentric LVH was noted along with grade 1 diastolic dysfunction. No significant valvular pathology observed. At the time of my evaluation the patient continues to have left sided chest discomfort with some tenderness, reproducible with palpation of the chest wall just below a surgical scar. The patient describes having history of 3 prior myocardial infarctions. The first 1 was silent. Patient notes undergoing robotic coronary artery bypass grafting x1 at [facility] in 2013. Patient notes that his last cardiac catheterization was notable for multivessel coronary artery disease that was not amendable to percutaneous intervention. The patient is incarcerated at [facility]. His cardiac medications are in his locker. He notes compliance with his cardiac medications including aspirin, metoprolol, and atorvastatin. LDL cholesterol this admission, on November 10, 2021, was 167 mg/deciliter. Total cholesterol was 257. Triglycerides were 302. HDL cholesterol was 30. Past Medical and Surgical History Premature multivessel coronary artery disease. Status post DC x3. Status post robotic CABG x1 in [place], at [facility], 2013 Last catheterization in 2013 with multivessel disease not amendable to percutaneous intervention per patient report Hypertension Dyslipidemia History of cocaine use History of tobacco use COPD GERD Anxiety Depression Family History: Mother and father with CAD. Father passed in his 60s. Both maternal and paternal grandparents with CAD. Siblings without CAD. Siblings with diabetes mellitus. Social History: Reformed smoker. History of alcohol abuse. Remote history of illegal drug use, cocaine, circa 1980s. Originally from [place], [place]. Currently incarcerated at [facility] Complete review of Systems: Patient notes developing dyspnea when showering. Occasional reflux. Hiatal hernia. Back pain. Complete review of system is otherwise as stated above, negative, noncontributory. Allergies Allergy/AdvReac Type Severity Reaction Status Date / Time onion Allergy Unknown Verified 11/09/21 15:16 Home Medications Medication Instructions Recorded Confirmed Type albuterol sulfate 90 mcg/actuation 2 puff inhalation QID PRN 11/09/21 11/09/21 History aerosol inhaler Shortness Of Breath Or Wheezing aspirin 81 mg tablet,delayed 81 mg PO DAILY 11/09/21 11/09/21 History release atorvastatin 40 mg tablet 40 mg PO PM 11/09/21 11/09/21 History hydroxyzine pamoate 50 mg capsule 50 mg PO BID 11/09/21 11/09/21 History metoprolol tartrate 25 mg tablet 12.5 mg PO BID 11/09/21 11/09/21 History mirtazapine 30 mg tablet 30 mg PO HS 11/09/21 11/09/21 History paroxetine HCl 20 mg tablet (Paxil) 40 mg PO DAILY 11/09/21 11/09/21 History Patient History Medical History CAD (coronary artery disease) COPD (chronic obstructive pulmonary disease) HLD (hyperlipidemia) HTN (hypertension) Surgical History Hx of heart bypass surgery pt states 1 V bypass, hx of 90% occlusion Social History Smoking Status: Former smoker Second Hand Exposure: No; Do You Dip or Chew Tobacco: No; Tobacco Cessation Education Requested by Patient: No Hx Alcohol Use: No Hx Substance Use: Yes Last Used Substance Other:: 2000 Preferred Language: Malay Communication Ability: Effective Machinist Required: No Beliefs That Will Affect Care: None Current Living Situation: Other Current Living Situation Comment: [facility] Other Information That Helps Us Care for You: No Feels Safe at Home: Yes Safety Concerns: Feels Safe At This Time Assistive Devices: Oxygen - at Night Assistive Devices Comment: 3L o2 at night while at home, not using while in [facility] Review of Systems Review of Systems: See above Physical Exam Physical Exam: General: A&Ox3. NAD. HENT: Normocephalic. Atraumatic. Eyes: PER. Conjunctiva pink, sclera clear. Neck: No carotid bruits. No JVD. No HJR. Heart: RRR, 62 bpm. No murmur. No rub. No gallop. PMI is nondisplaced. Lungs: Diminished. Decreased. Clear to auscultation. Abdomen: +BS. Soft. Nontender. No masses or organomegaly. Extremities: No clubbing, cyanosis, or edema. Right arm and left leg shackled Limited neurological examination is without focal deficits. Pulses: radial=2/4, posterior tibial=1/4. Results & Data ([facility]) Vital Signs (Past 12 Hours) Vital Signs Temp Pulse Pulse Resp BP Pulse Ox O2 Del Method 11/10/21 07:59 36.5 C 57 L 20 118/77 92 Room Air 11/10/21 07:42 56 L 11/10/21 03:21 36.4 C L 61 18 120/85 91 Room Air 11/09/21 23:00 57 L 11/09/21 22:56 36.5 C 56 L 18 111/74 95 Room Air Laboratory Results Cardiac Enzymes 11/09/21 11/09/21 11/09/21 Range/Units 15:10 19:28 22:58 AST 30 (13-39) U/L Troponin I High Sens 3.7 3.8 3.3 (0-20) pg/ml 11/10/21 Range/Units 03:45 AST 27 (13-39) U/L Troponin I High Sens 4.0 (0-20) pg/ml Lipids 11/10/21 Range/Units 03:45 Triglycerides 302 H (0-150) mg/dl Cholesterol 257 H (0-200) mg/dl HDL Cholesterol 30 mg/dl Cholesterol/HDL Ratio 8.6 H (0-5) CBC 11/09/21 11/10/21 Range/Units 15:10 03:45 WBC 4.48 L 5.74 (4.8-10.8) K/ul RBC 5.03 4.99 (4.63-6.08) M/uL Hgb 14.6 14.5 (14.0-18.0) g/dl Hct 43.4 43.0 (40.1-51.0) % Plt Count 250 209 (130-400) K/uL Neut # (Auto) 2.46 2.95 (1.4-6.5) K/uL Lymph # (Auto) 1.31 1.74 (1.2-3.4) K/uL Cochran # (Auto) 0.59 0.83 H (0.24-0.82) K/uL Eos # (Auto) 0.06 0.15 (0-0.50) K/uL Baso # (Auto) 0.04 0.04 (0-0.2) K/uL Comprehensive Metabolic Panel 11/09/21 11/10/21 Range/Units 15:10 03:45 Sodium 135 L 136 (136-145) mmol/L Potassium 4.6 4.3 (3.5-5.1) mmol/L Chloride 106 102 (98-107) mmol/L Carbon Dioxide 20 L 27 (21-32) mmol/L BUN 15 17 (6-23) mg/dl Creatinine 1.31 1.54 H (0.6-1.4) mg/dl Glucose 102 H 97 (70-99(Fasting)) mg/dl Calcium 9.1 9.2 (8.5-10.1) mg/dl AST 30 27 (13-39) U/L ALT 27 29 (7-52) U/L Alkaline Phosphatase 49 52 (34-104) U/L Total Protein 7.1 6.8 (6.0-8.3) gm/dl Albumin 4.2 4.1 (3.4-5.0) gm/dl Intake and Output 11/09/21 11/10/21 11/10/21 22:59 06:59 14:59 Intake Total 50 / 50 Output Total 400 / 400 Balance 50 / -350 -400 / -350 Intake: Oral 50 / 50 Output: Urine 400 / 400 Other: Other Intake Source NPO Weight 120.338 kg Weight Measurement Method Built in [facility]
--- NOTE | 2021-11-10 10:35 | Electrocardiogram Report ---
Test Reason : Blood Pressure : / mmHG Vent. Rate : 055 BPM Atrial Rate : 055 BPM P-R Int : 186 ms QRS Dur : 084 ms QT Int : 442 ms P-R-T Axes : 022 -03 004 degrees QTc Int : 422 ms Sinus bradycardia Inferior infarct , age undetermined Abnormal ECG When compared with ECG of 09-NOV-2021 15:08, Inferior infarct is now Present Confirmed by Kg Meredith ([id number]) on 11/10/2021 10:35:42 AM Referred By: [facility] Confirmed By:Kg Meredith
[2021-11-10] MEDS ORDERED: METOPROLOL TARTRATE 1 MG/ML VIAL IV ONE (11:13)
[2021-11-10] MEDS ORDERED: ATROPINE SULFATE 0.1 MG/ML 10ML SYR IV ONE (11:13)
[2021-11-10] MEDS ORDERED: DOBUTamine HCL 12.5 MG/ML 20 ML VIAL IV ONE (11:13)
--- NOTE | 2021-11-10 17:12 | Discharge Summary ---
Date of Service November 10, 2021 Admission HPI Per Admitting Provider This is a 56-year-old male who has a significant PMH of CAD, HLD, COPD, GERD, Anxiety, depression, hx of alcohol use who presents to ED secondary to chest pain since last evening around 9 PM. Of significance patient does have prior history of NM and coronary artery disease. He did undergo cardiac catheterization in 2013 which was not amenable to intervention. He states he had to undergo a 1V bypass at [facility] in [place], [place]. He is currently incarcerated. CP started at 9pm last night. He was sleeping. It was substernal, nonradiating, felt like a, "pressure," nothing made better or worse. He had similar sx in past with prior NM. He rated pain as 8/10 at worst and 4/10 at best. Today he had similar sx and opted to seek ED treatment. He did get a ntg as well as full strength asa which helped pain. He also states he got diaphoretic and chills as well a dizziness. He denies any recent illness, f/c/s, URI sx, cough, lightheaded, presyncope, sob at rest, hemoptysis, n/v/d, abd pain, change in bowel or urinary habits. He admits to being complaint with medications. He denies any recent trauma to chest or falls. +FH of CAD. His mother had 6 stents to heart in her 60s. Also both sets of grandparents had heart disease. Father in early 60s due to diabetes and heart disease. In ED he remained hemodynamically stable. Initial troponin was negative. EKG was with out ischemic change. He did have elevated D dimer and therefore CTA was ordered. This was negative for PE but did show 6mm pulmonary nodule at Left lung base. Recommend follow up in 12 months. No meds were administered in ED as he received full strength asa and ntg Admission Exam Per Admitting Provider General Appearance:Morbidly Obese, no apparent distress Head: normocephalic, Atraumatic Eyes: normal inspection, EOMI Neck: supple, Trachea midline Respiratory/Chest: Normal breath sounds, CTA, No accessory muscle use Cardiovascular: Distant heart sounds, no audible murmur, no pedal edema. Abdomen/GI:Soft, Non tender, Bowel sounds present, protuberant. Extremities/Musculoskeletal:normal inspection, no edema Neurologic/Psych:AAOX3, grossly no focal neurological deficits Skin: normal color, warm Principal Diagnosis Chest pain CAD s/p CABG x1 HLD HTN Discharge Exam General Appearance:Morbidly Obese M, in no acute distress Head: normocephalic, Atraumatic Eyes: normal inspection, EOMI Neck: supple Respiratory/Chest: Normal breath sounds, CTA, No accessory muscle use Cardiovascular: RRR, no audible murmur, no pedal edema. Abdomen/GI:Soft, Non tender, Bowel sounds present, obese Extremities/Musculoskeletal:normal inspection, no edema Neurologic/Psych:AAOX3, grossly no focal neurological deficits Skin: normal color, warm Discharge Data Allergies Allergy/AdvReac Type Severity Reaction Status Date / Time onion Allergy Unknown Verified 11/09/21 15:16 Consultations 11/09/21 17:26 ED Decision to Admit Stat 11/09/21 20:56 Consult Cardiology Routine HIM [Consult Health Information Management] Routine Ordered Studies 11/09/21 15:54 CT angio chest PE protocol Stat FINDINGS: Lungs and pleura: Mucous is noted in the trachea. There is a 6 mm nodule at the left lung base (series 4 image 72). Heart and pericardium: Heart size is normal. No pericardial effusion. Vessels: Evaluation for pulmonary embolism is limited due to suboptimal contrast timing. No evidence of central, lobar, or segmental embolus. Mediastinum and barbara: Unremarkable. Chest wall and lower neck: Unremarkable. Abdomen: A hiatal hernia is seen. Subcentimeter paraesophageal lymph nodes are seen. Bones: Degenerative changes in the thoracic spine. IMPRESSION: 1. No evidence of pulmonary embolism. 2. 6 mm pulmonary nodule in the left lung base. According to Fleischner criteria, no follow-up is required in low risk patients, in high-risk patients, a 12 month follow-up CT can be optionally performed. Hospital Course (1) Chest pain: (2) CAD (coronary artery disease): (3) HTN (hypertension): (4) HLD (hyperlipidemia): (5) COPD (chronic obstructive pulmonary disease): (6) Nocturnal hypoxia: Plan This is a 56-year-old male who has a significant PMH of CAD, HLD, COPD, GERD, Anxiety, depression, hx of alcohol use who presents to ED secondary to chest pain Pt presents with off and on chest pain in setting of hx of CAD. Sx occur at rest, did improve with nitro. Initial ecg negative. Serial troponins negative. Atypical Chest Pain hx of CAD s/p CABG x 1 CTA chest obtained FINDINGS: Lungs and pleura: Mucous is noted in the trachea. There is a 6 mm nodule at the left lung base (series 4 image 72). Heart and pericardium: Heart size is normal. No pericardial effusion. Vessels: Evaluation for pulmonary embolism is limited due to suboptimal contrast timing. No evidence of central, lobar, or segmental embolus. Mediastinum and barbara: Unremarkable. Chest wall and lower neck: Unremarkable. Abdomen: A hiatal hernia is seen. Subcentimeter paraesophageal lymph nodes are seen. Bones: Degenerative changes in the thoracic spine. IMPRESSION: 1. No evidence of pulmonary embolism. 2. 6 mm pulmonary nodule in the left lung base. According to Fleischner criteria, no follow-up is required in low risk patients, in high-risk patients, a 12 month follow-up CT can be optionally performed. Admitted to pcu hx of 1V bypass at [facility] in 2013 Cardiology consulted Obtained echocardiogram and pt also underwent stress echo echo EF 60 to 65%. There is mild concentric LVH. LV wall motion is normal. Grade 1 diastolic dysfunction. No significant valvular pathology. Dobutamine stress echo Normal pharmacologic stress echo. No echocardiographic or ECG evidence of myocardial ischemia having achieved heart rate adequate for diagnostic purposes. Current hemoglobin a1c 5/5% Lipid panel obtained TC 257, LDL 167 Per cardiology - Patient without evidence of acute coronary syndrome. History of chronic coronary disease with coronary artery bypass grafting x1. Dobutamine stress echo negative for inducible ischemia. Stress test denotes a low risk of cardiovascular events over the next 1 year. Recommend continued medical management. No further inpatient cardiac testing at this time. Continue asa, statin, metoprolol Discussed medication compliance given elevated cholesterol Counseled on weight loss, and healthier diet HTN BP stable continue metoprolol HLD continue statin hx of tobacco abuse COPD nocturnal hypoxia continue O2 at HS prn albuterol no acute exac Dispo:plan to return to [facility] Total Time Total Time Spent Total Time Spent (In Minutes): 40 Discharge Plan Discharge Items [facility] Disposition[facility] Reason For Visit: CHEST PAIN Discharge Diagnosis: Chest pain CAD s/p CABG x1 HLD HTN Activity: Per Instructions section Non-emergency contact: Primary Care Provider and Lead Embedded Software Engineer Call non-emergency contact if: you have any medication questions and your symptoms worsen Follow-up/Referrals: Chrissy THACKER [Primary Care Provider] - Diet: Heart Healthy Addtl Attending Provider Instructions: Continue taking your heart medications, aspirin, metoprolol, and atorvastatin. Your cholesterol is elevated, make sure you continue taking atorvastatin as prescribed. Strongly recommend to lose weight, and have heart healthy diet. For pain, consider taking Tylenol 1000 mg 3 times a day. Max daily dose 3000 mg. Pending Studies at Discharge: No Stand-Alone Forms: My [facility] Skilled Items Patient informed of condition?: Yes DNR: No Discharge Level of Care: Other Communicable Disease: No Discharge Prognosis: Stable Lines: None Urinary Catheter: No Medications and DC Order Prescriptions: Continued atorvastatin 40 mg Tablet 40 mg PO PM hydroxyzine pamoate 50 mg Capsule 50 mg PO BID aspirin [Aspir-Low] 81 mg Tablet,Delayed Release (Dr/Ec) 81 mg PO DAILY paroxetine HCl [Paxil] 20 mg Tablet 40 mg PO DAILY mirtazapine 30 mg Tablet 30 mg PO HS albuterol sulfate 90 mcg/actuation Hfa Aerosol Inhaler 2 puff INHALATION QID PRN (Reason: Shortness Of Breath Or Wheezing) metoprolol tartrate 25 mg Tablet 12.5 mg PO BID Admission Data Admit Date/Time: 11/09/21 17:14 Attending Provider: Shay Schmidt Admit Provider: Mike Borrero Primary Care Provider: Chrissy THACKER Other Providers: Mike Borrero ; Tee Tim
== END 2021-11-10 19:05 ==
LOC: 4W 14:40 → ED 14:40 → SUATTDRO 17:14 → 4W 20:34